=== PATIENT | male | born 1990 | race Caucasian/White ===

== ENCOUNTER 2025-03-01 10:12 | Emergency (ER) | payer SELFPAY ==
[~2025-03-01] VITALS: Ht 175.3 cm; Wt 96.2 kg
[2025-03-01 11:33] LABS: KETONE, URINE AUTO RFX NEGATIVE (NEGATIVE); LEUKOCYTE ESTERASE UR AUTO RFX NEGATIVE (NEGATIVE); MUCUS, URINE RFX SMALL (NEGATIVE); NITRITE, URINE AUTO RFX NEGATIVE (NEGATIVE); RBC, URINE AUTO RFX 1 /HPF (0-3); SQUAM EPITHELIAL CELL UR AURFX 0 /HPF (0-6); WBC, URINE AUTO RFX 1 /HPF (0-3)
[2025-03-01 12:46] LABS: BASO # 0.1 10^3/uL (0.0-0.2); BASO % 0.8 % (0.0-1.0); EOS # 0.2 10^3/uL (0.0-0.5); EOS % 2.2 % (0.0-3.0); LYMPH # 2.2 10^3/uL (1.5-5.0); LYMPH % 26.0 % (24.0-44.0); MONO # 0.8 10^3/uL (0.0-0.8); MONO % 9.0 % (2.0-8.0); NEUTROPHILS # 5.2 10^3/uL (1.5-8.5); NEUTROPHILS % 61.9 % (36.0-66.0); PLATELET COUNT, AUTOMATED 332 10^3/uL (150-450)
[2025-03-01 12:58] LABS: Trichomonas vaginalis (AMP) NOT DETECTED (NEGATIVE)
[2025-03-01 13:08] LABS: CALCIUM LEVEL 10.4 MG/DL (8.5-10.1); CARBON DIOXIDE LEVEL 28 MMOL/L (20-31); CHLORIDE LEVEL 103 MMOL/L (98-107); CREATININE FOR GFR 0.82 MG/DL (0.70-1.30); GLOMERULAR FILTRATION RATE > 90.0 (>60); POTASSIUM SERUM 4.3 MMOL/L (3.5-5.1); SODIUM LEVEL 143 MMOL/L (136-145)
[2025-03-01 13:22] LABS: GC DNA AMPLIFICATION NEGATIVE (NEGATIVE)
[2025-03-01] MEDS: ONDANSETRON 4MG 2ML VIAL IV ONE (13:33)
[2025-03-01] MEDS: KETOROLAC 30 MG/ML 1 ML VIAL IV ONE (13:33)
[2025-03-01 13:47] LABS: ALT/SGPT 139 U/L (7.0-40); AST/SGOT 48 U/L (<34)
[2025-03-01] MEDS ORDERED: COLA100C5 PO (14:50)
[2025-03-01] MEDS ORDERED: HOME MED LIST COMPLETE! XX SCH (14:50)
[2025-03-01] MEDS: MAGNESIUM CITRATE 300 ML BTL PO ONE (15:01)
[2025-03-01 15:03] VITALS: BP 134/85; TEMP 98.5; O2SAT 99
== END 2025-03-01 15:09 | disposition home or self-care (01) ==
LOC: M ED 10:12
DX: R10.9 Unspecified abdominal pain (principal); F12.10 Cannabis abuse, uncomplicated; F15.10 Other stimulant abuse, uncomplicated; F19.10 Other psychoactive substance abuse, uncomplicated; K76.0 Fatty (change of) liver, not elsewhere classified; K42.0 Umbilical hernia with obstruction, without gangrene; K40.90 Unilateral inguinal hernia, without obstruction or gangrene, not specified as recurrent; J30.89 Other allergic rhinitis
CPT/HCPCS: 74176; 76870; 80048; 80076; 81001; 83690; 85025; 87661; 87810; 87850; 93976; 96374; 96375; 99284; J1885; J2405